=== PATIENT | male | born 1955 | race Caucasian/White ===

== ENCOUNTER → 2018-09-14 | Outpatient (CLI) | payer MEDICARE, BC ==
[2016-04-08 10:45] VITALS: BP 149/83
[~2018-09-14] MED LIST: 0.9 % SODIUM CHLORIDE 10 ML VIAL ONE; ALBU2.5V14 NEB; ALPR1TAB2 PO; AMIT50TA PO; CARV6.25 PO; FURO-68 PO; GABA600T PO; IBUP200T44 PO; IOHEXOL 300 MG/ML 50 ML VIAL. ONE; LEVO200T5 PO; LIDOCAINE 1% PF 30 ML VIAL. ONE; LOVA40TA2 PO; METF500T16 PO; MULT-246 PO; NITR4.1S2 TL; OMEP20TA63 PO; OXYC1TAB22 PO; SPIR25TA5 PO; WARF-31 PO; methylPREDNISolone ACETATE 80 MG/ML VIAL. ONE
== END | disposition home or self-care (01) ==
LOC: SURG 12:37
PROVIDERS: ATTEND Anesthesiology Pain Medicine
DX: M96.1 Postlaminectomy syndrome, not elsewhere classified (principal); M54.5 Low back pain; I20.9 Angina pectoris, unspecified; I25.2 Old myocardial infarction; J44.9 Chronic obstructive pulmonary disease, unspecified; G47.30 Sleep apnea, unspecified; I10 Essential (primary) hypertension; R01.1 Cardiac murmur, unspecified; M19.90 Unspecified osteoarthritis, unspecified site; E11.9 Type 2 diabetes mellitus without complications; D64.9 Anemia, unspecified; K21.9 Gastro-esophageal reflux disease without esophagitis; E89.0 Postprocedural hypothyroidism; Z90.49 Acquired absence of other specified parts of digestive tract; Z79.899 Other long term (current) drug therapy; Z79.84 Long term (current) use of oral hypoglycemic drugs; Z86.73 Personal history of transient ischemic attack (TIA), and cerebral infarction without residual deficits; Z98.890 Other specified postprocedural states; Z88.8 Allergy status to other drugs, medicaments and biological substances
CPT/HCPCS: 36415; 62323; 85610; J1040; J2001; Q9967

== ENCOUNTER → 2018-09-15 | Outpatient (CLI) | payer MEDICARE, BC ==
[2016-04-08 10:45] VITALS: BP 149/83
[~2018-09-15] MED LIST changes: -0.9 % SODIUM CHLORIDE 10 ML VIAL ONE; -IOHEXOL 300 MG/ML 50 ML VIAL. ONE; -LIDOCAINE 1% PF 30 ML VIAL. ONE; -methylPREDNISolone ACETATE 80 MG/ML VIAL. ONE
[2018-09-15 11:56] LABS: CREATININE 0.8 mg/dL (0.7-1.3)
== END | disposition home or self-care (01) ==
LOC: LAB 10:35
PROVIDERS: ATTEND Anesthesiology Pain Medicine
DX: Z11.8 Encounter for screening for other infectious and parasitic diseases (principal)
CPT/HCPCS: 36415; 82565; 84520

== ENCOUNTER 2019-04-25 12:21 | Emergency (ER) | payer MEDICARE, BC ==
[~2019-04-25] VITALS: Ht 180.3 cm; Wt 131.0 kg
[2019-04-25 12:57] LABS: BASO # 0.1 x10^3/uL (0.0-0.2); BASO % 1 % (0-3); EOS # 0.2 x10^3/uL (0.0-0.7); EOS % 3 % (0-3); HEMATOCRIT 44.8 % (39.0-53.0); HEMOGLOBIN 15.1 g/dL (13.0-17.5); LYMPH # 1.7 x10^3/uL (1.0-4.8); LYMPH % 23 % (24-48); MEAN CORPUSCULAR HEMOGLOBIN 32 pg (25-35); MEAN CORPUSCULAR HGB CONC 34 g/dL (31-37); MEAN CORPUSCULAR VOLUME 95 fL (79-100); MONO # 0.5 x10^3/uL (0.0-1.1); MONO % 7 % (0-9); NEUT # 4.7 x10^3uL (1.8-7.7); NEUT % 66 % (31-73); PLATELET COUNT 275 x10^3/uL (140-400); RED BLOOD COUNT 4.74 x10^6/uL (4.30-5.70); RED CELL DISTRIBUTION WIDTH 14.3 % (11.5-14.5); WHITE BLOOD COUNT 7.2 x10^3/uL (4.0-11.0)
--- NOTE | 2019-04-25 13:00 | PHYS DOC ---
Past History Past Medical History: CHF, TIA Past Surgical History: Other Alcohol Use: None Drug Use: None Adult General Chief Complaint Chief Complaint: LOWER EXTREMITY SWELLING [facility] HPI 63-year-old male presents with right lower leg swelling. The patient comes from Dr. Wolfe's office with concern for DVT. 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 He is also had a PE. He is on Coumadin daily. About one week ago, the patient hit the front of his right lower leg on a table or chair. It was bruised at first. The patient has been ignoring it because he has had to make feel arrangements for his mother who just . He noticed yesterday that the area was erythematous and felt warm. He continued to look that way today and he decided he should get it checked out. Patient denies fever or chills. He is taking his medications as prescribed. Denies shortness of breath. Other injuries or complaints. Review of Systems Review of Systems Constitutional: Denies fever or chills [] Eyes: Denies change in visual acuity, redness, or eye pain [] HENT: Denies nasal congestion or sore throat [] Respiratory: Denies cough or shortness of breath [] Cardiovascular: No additional information not addressed in HPI [] GI: Denies abdominal pain, nausea, vomiting, bloody stools or diarrhea [] : Denies dysuria or hematuria [] Musculoskeletal: Right lower extremity swelling[] Integument: Erythema of the right, anterior lower leg.[] Neurologic: Denies headache, focal weakness or sensory changes [] Endocrine: Denies polyuria or polydipsia [] All other systems were reviewed and found to be within normal limits, except as documented in this note. Allergies Allergies Allergies Coded Allergies Type Severity Reaction Last Updated Verified droperidol Allergy Unknown 03/14/16 Yes Physical Exam Physical Exam Constitutional: Well developed, morbid obesity, well nourished, no acute distress, non-toxic appearance. [] HENT: Normocephalic, atraumatic, bilateral external ears normal, oropharynx moist, no oral exudates, nose normal. [] Eyes: PERRLA, EOMI, conjunctiva normal, no discharge. [] Neck: Normal range of motion, no tenderness, supple, no stridor. [] Cardiovascular:Heart rate regular rhythm, no murmur [] Lungs & Thorax: Bilateral breath sounds clear to auscultation [] Abdomen: Bowel sounds normal, soft, no tenderness, no masses, no pulsatile masses. [] Skin: Warm, dry, no erythema, no rash. [] Back: No tenderness, no CVA tenderness. [] Extremities: Right lower extremity is greater diameter than left. 7 cm x 7 cm erythematous, warm area on the anterior rodriguez.[] Neurologic: Alert and oriented X 3, normal motor function, normal sensory function, no focal deficits noted. [] Psychologic: Affect normal, judgement normal, mood normal. [] Current Patient Data Vital Signs Vital Signs Date Time Temp Pulse Resp B/P (MAP) Pulse Ox O2 Delivery O2 Flow Rate FiO2 04/25/19 12:38 98.1 71 18 96 Room Air EKG EKG [] Radiology/Procedures Radiology/Procedures [] Impressions: Right lower extremity venous doppler ultrasound History: Right calf redness and pain, previous history of DVT, on blood thinner Comparison: None Findings: Multiple grayscale, color, and duplex spectral analysis sonographic images were acquired of the right lower extremity veins to evaluate for the presence of DVT. There is normal phasicity. Normal compression, color-flow, and augmentation is demonstrated from the right common femoral to the popliteal veins. There is normal color flow of the proximal greater saphenous and profunda femoris veins. There is normal color flow of segments of the calf veins. Impression: 1. There is no evidence of deep venous thrombosis from the right common femoral to the popliteal veins. Electronically signed by: Jacob Fernandez MD (04/25/2019 1:20 PM) [id number] DICTATED AND SIGNED BY: JACOB FERNANDEZ MD DATE: 04/25/19 3761 CC: TAMAR CHOU DO; LEON WOLFE MD ~ Course & Med Decision Making Course & Med Decision Making Pertinent Labs and Imaging studies reviewed. (See chart for details) The patient's labs are unremarkable. His INR is 2.4. The lower extremity ultrasound is negative for DVT. I believe this is likely cellulitis. I will discharge him with 7 days of Keflex 3 times a day. He is stable for discharge at this time. [] Dragon Disclaimer Dragon Disclaimer This electronic medical record was generated, in whole or in part, using a voice recognition dictation system. Departure Departure: Impression: Primary Impression: Cellulitis of right lower leg Disposition: 01 HOME, SELF-CARE Condition: STABLE Referrals: LEON WOLFE MD (PCP) Patient Instructions: Cellulitis, [id number] Scripts Cephalexin (KEFLEX) 500 Mg Capsule 1 CAP PO TID for cellulitis, #21 CAP Prov: TAMAR CHOU DO 04/25/19 TAMAR CHOU DO Apr 25, 2019 12:59
[2019-04-25 13:03] LABS: ALBUMIN 3.7 g/dL (3.4-5.0); CALCIUM 9.2 mg/dL (8.5-10.1); CREATININE 0.8 mg/dL (0.7-1.3); TOTAL BILIRUBIN 0.5 mg/dL (0.2-1.0); TOTAL PROTEIN 7.3 g/dL (6.4-8.2)
--- NOTE | 2019-04-25 13:23 | RAD ---
Right lower extremity venous doppler ultrasound History: Right calf redness and pain, previous history of DVT, on blood thinner Comparison: None Findings: Multiple grayscale, color, and duplex spectral analysis sonographic images were acquired of the right lower extremity veins to evaluate for the presence of DVT. There is normal phasicity. Normal compression, color-flow, and augmentation is demonstrated from the right common femoral to the popliteal veins. There is normal color flow of the proximal greater saphenous and profunda femoris veins. There is normal color flow of segments of the calf veins. Impression: 1. There is no evidence of deep venous thrombosis from the right common femoral to the popliteal veins. Electronically signed by: Cristopher Garner MD (04/25/2019 1:20 PM) [id number]
[2019-04-25 13:47] VITALS: BP 139/77
[2019-04-25] MEDS ORDERED: CEPH-264 PO (14:05)
== END 2019-04-25 14:17 | disposition home or self-care (01) ==
LOC: ER 12:21
DX: L03.115 Cellulitis of right lower limb (principal); I50.9 Heart failure, unspecified; Z86.73 Personal history of transient ischemic attack (TIA), and cerebral infarction without residual deficits; Z88.8 Allergy status to other drugs, medicaments and biological substances
CPT/HCPCS: 36415; 80053; 85025; 85610; 85730; 87040; 93971; 99285

== ENCOUNTER 2021-10-17 09:04 | Emergency (ER) | payer BC, MEDICARE ==
[~2021-10-17] VITALS: Ht 180.3 cm; Wt 135.8 kg
[~2021-10-17 09:04] MED LIST changes: +CEPH-264 PO
[2021-10-17] MEDS ORDERED: ONDANSETRON PF 4 MG/2 ML VIAL. ONE (09:13)
--- NOTE | 2021-10-17 09:20 | RAD ---
CT STROKE HEAD W/O History: Neurological deficits Comparison: None. Technique: Noncontrast CT imaging was performed of the head. Findings: There is a right cerebellar intraparenchymal hemorrhage measuring 4.4 x 3.8 x 2.4 cm with right to le ft cerebellar shift and bilateral cerebellar subarachnoid hemorrhage. No supratentorial hemorrhage or infarction is identified. No hydrocephalus. Imaged orbits are unremarkable. Imaged paranasal sinuses and mastoid air cells are clear. The scalp a nd calvarium are unremarkable. Impression: 1. Large right cerebellar intraparenchymal hemorrhage and bilateral cerebellar subarachnoid hemorrha ge. ----- Exposure: One or more of the following individualized dose reduction techniques were utilized for thi s examination: 1. Automated exposure control 2. Adjustment of the mA and/or kV according to patient size 3. Use of iterative reconstruction technique. Findings discussed with TAMAR CHOU DO at 10/17/2021 9:14 AM. FOR INTERNAL CODING PURPOSES RESULT CODE: (C) Electronically signed by: Raghav Card MD (10/17/2021 9:17 AM) [facility]
[2021-10-17] MEDS ORDERED: PANT40TA3 PO (09:25)
[2021-10-17] MEDS ORDERED: MECL-75 PO (09:25)
[2021-10-17] MEDS ORDERED: SEMA1PEN3 SQ (09:25)
[2021-10-17] MEDS ORDERED: ALPR1TAB2 PO (09:25)
[2021-10-17] MEDS ORDERED: CHOL10004 PO (09:25)
[2021-10-17] MEDS ORDERED: POTA-121 PO (09:25)
[2021-10-17] MEDS ORDERED: MONT10TA80 PO (09:25)
[2021-10-17] MEDS ORDERED: CYCL10TA19 PO (09:25)
[2021-10-17] MEDS ORDERED: GLIP10TA13 PO (09:25)
[2021-10-17] MEDS ORDERED: OXYB5TAB10 PO (09:25)
[2021-10-17] MEDS ORDERED: AMIT75TA PO (09:25)
[2021-10-17] MEDS ORDERED: ONDANSETRON PF 4 MG/2 ML VIAL. IVP ONE (09:30)
[2021-10-17] MEDS ORDERED: PHYTONADIONE (VIT K1) IV 10 MG in IV NORMAL SALINE 50ML 50 ML IV ONE (09:30)
[2021-10-17] MEDS ORDERED: PHYTONADIONE (VIT K1) IV 5 MG in IV NORMAL SALINE 50ML 50 ML IV ONE (09:30)
--- NOTE | 2021-10-17 09:30 | PHYS DOC ---
Past History Past Medical History: CHF, TIA Past Surgical History: Other Alcohol Use: None Drug Use: None General Adult EDM: Chief Complaint: NEURO SYMPTOMS/DEFICITS HPI: HPI: 66-year-old male presents as a code stroke. Most of the patient reports come from EMS. EMS was called because the patient was feeling generally unwell. Wh ile they were at the residence taking vital signs, the patient started to have a left-sided facial droop and leaning to the left. He also appeared to have some left-sided weakness. Patient was immediately brought to the emergency room as a code stroke. The patient is on warfarin for A. fib as well as several other medications for diabetes and other health issues. Patient has a history of a previous stroke but there were no reported deficits from that. Type of stroke is unknown at this time. The patient further tells me that he was dressed ready to go to a today when he started to have a significant headache. That is what led to calling EMS initially. Review of Systems: Review of Systems: Constitutional: Denies fever or chills Eyes: Denies change in visual acuity HENT: Denies nasal congestion or sore throat Respiratory: Denies cough or shortness of breath Cardiovascular: Denies chest pain or edema GI: Denies abdominal pain, nausea, vomiting, bloody stools or diarrhea : Denies dysuria Musculoskeletal: Denies back pain or joint pain Integument: Denies rash Neurologic: Headache. Facial droop, weakness Endocrine: Denies polyuria or polydipsia Lymphatic: Denies swollen glands Psychiatric: Denies depression or anxiety Current Medications: Current Meds: Current Medications Medications (Trade) Dose Ordered Sig/Jalil Start Time Stop Time Status Last Admin Dose Admin Ondansetron HCl (Zofran) 4 mg 1X ONCE 10/17/21 09:30 10/17/21 09:31 10/17/21 09:18 4 MG Phytonadione 5 mg/ Sodium Chloride 50.5 ml @ 101 mls/hr 1X ONCE 10/17/21 09:30 10/17/21 09:59 UNV Allergies: Allergies: Allergies Coded Allergies Type Severity Reaction Last Updated Verified droperidol Allergy Unknown 03/14/16 Yes Physical Exam: PE: Constitutional: Well developed, well nourished, morbidly obese, no acute distress. [] HENT: Normocephalic, atraumatic, bilateral external ears normal, oropharynx moist, no oral exudates, nose normal. [] Eyes: PERRLA, EOMI, conjunctiva normal, no discharge. [] Neck: Normal range of motion, no tenderness, supple, no stridor. [] Cardiovascular: Heart rate 80, regular rhythm, no murmur [] Lungs & Thorax: Bilateral breath sounds clear to auscultation [] Abdomen: Bowel sounds normal, soft, no tenderness, no masses, no pulsatile masses. [] Skin: Warm, dry, no erythema, no rash. [] Back: No tenderness, no CVA tenderness. [] Extremities: No cyanosis, no clubbing, no edema. [] Neurologic: Alert and oriented X 3. See NIHSS.[] Psychologic: Affect normal, judgement normal, mood normal. [] EKG: EKG: Sinus rhythm, rate 80, leftward axis, no ST elevation or depression. [] Radiology/Procedures: Radiology/Procedures: [] Heart Score: C/O Chest Pain: N/A Risk Factors: Risk Factors: DM, Current or recent (<one month) smoker, HTN, HLP, family history of CAD, obesity. Risk Scores: Score 0 - 3: 2.5% MACE over next 6 weeks - Discharge Home Score 4 - 6: 20.3% MACE over next 6 weeks - Admit for Clinical Observation Score 7 - 10: 72.7% MACE over next 6 weeks - Early Invasive Strategies Course & Med Decision Making: Course & Med Decision Making Pertinent Labs and Imaging studies reviewed. (See chart for details) The patient has an intraparenchymal hemorrhage of the sella bladder area 4 cm x 4 cm x 2.4 cm. See official read for details. Given the patient's warfarin use, we will reverse with vitamin K and FFP. I do not have PCC available at this facility. We will start with initial 2 units of FFP and 10 mg of vitamin K. I spoke with the neurosurgeon at [facility], Dr. Castro and he has recommended transferring the patient and he will operate today. The patient's INR is 3.9. The second unit of FFP is now running. I spoke with the hospitalist, Dr. Lara and he has accepted the patient for transfer. He agrees emergent transfer without a room is indicated. Patient will transfer emergently by EMS. [] Dragon Disclaimer: Dragon Disclaimer: This electronic medical record was generated, in whole or in part, using a voice recognition dictation system. NIH Stroke Scale: NIH Stroke Scale Response (Comments) Value Level of Consciousness: 0 Alert/Responsive 0 LOC Questions: 0 Answers both correctly 0 LOC Commands: 0 Performs both tasks 0 Best Gaze: 0 Normal 0 Visual: 0 No visual loss 0 Facial Palsy: 1 Minor paralysis 1 Motor - Left Arm 1 Drifts, but can hold 1 Motor - Right Arm 1 Drifts but can hold 1 Motor - Left Leg 2 Some effort 2 Motor: Right Leg 3 Limb falls 3 Limb Ataxia: 2 Two limbs 2 Sensory: 0 No loss 0 Best Language: 0 Normal 0 Dysathria: 1 Mild to moderate 1 Extinction and Inattention: 0 Normal 0 Total 11 Departure Departure: Impression: Primary Impression: Hemorrhagic stroke Disposition: 02 SHORT TERM HOSPITAL Condition: GUARDED Referrals: LEON WOLFE MD (PCP) TAMAR CHOU DO Oct 17, 2021 09:30
[2021-10-17 09:36] LABS: BASO # 0.1 x10^3/uL (0.0-0.2); BASO % 1 % (0-3); EOS # 0.2 x10^3/uL (0.0-0.7); EOS % 2 % (0-3); HEMATOCRIT 43.4 % (39.0-53.0); HEMOGLOBIN 14.5 g/dL (13.0-17.5); LYMPH # 1.3 x10^3/uL (1.0-4.8); LYMPH % 14 % (24-48); MEAN CORPUSCULAR HEMOGLOBIN 31 pg (25-35); MEAN CORPUSCULAR HGB CONC 34 g/dL (31-37); MEAN CORPUSCULAR VOLUME 91 fL (79-100); MONO # 0.7 x10^3/uL (0.0-1.1); MONO % 8 % (0-9); NEUT # 7.1 x10^3uL (1.8-7.7); NEUT % 75 % (31-73); PLATELET COUNT 325 x10^3/uL (140-400); RED BLOOD COUNT 4.74 x10^6/uL (4.30-5.70); RED CELL DISTRIBUTION WIDTH 14.6 % (11.5-14.5); WHITE BLOOD COUNT 9.5 x10^3/uL (4.0-11.0)
[2021-10-17 09:39] LABS: CALCIUM 8.6 mg/dL (8.5-10.1); CREATININE 0.9 mg/dL (0.7-1.3); GFR 83.9; POTASSIUM 3.5 mmol/L (3.5-5.1)
[2021-10-17] MEDS ORDERED: PROCHLORPERAZINE 10 MG/2 ML VIAL. IV ONE (09:45)
[2021-10-17 09:48] LABS: ALBUMIN 3.6 g/dL (3.4-5.0); ALBUMIN/GLOBULIN RATIO 0.9 (1.0-1.7); TOTAL BILIRUBIN 0.5 mg/dL (0.2-1.0); TOTAL PROTEIN 7.4 g/dL (6.4-8.2)
--- NOTE | 2021-10-17 10:04 | EKG ---
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
[2021-10-17 10:29] LABS: INFLUENZA A PATIENT NEGATIVE (NEGATIVE); INFLUENZA B PATIENT NEGATIVE (NEGATIVE)
[2021-10-17 11:05] VITALS: BP 152/69
== END 2021-10-17 11:20 | disposition short-term general hospital (02) ==
LOC: ER 09:04
DX: I62.9 Nontraumatic intracranial hemorrhage, unspecified (principal); R29.810 Facial weakness; Z20.822 Contact with and (suspected) exposure to COVID-19; Z86.73 Personal history of transient ischemic attack (TIA), and cerebral infarction without residual deficits
CPT/HCPCS: 36415; 70450; 80053; 82947; 84484; 85025; 85610; 85730; 86850; 86900; 86901; 93005; 96365; 96375; 99285; C9803; J0780; J2405; J3430; U0003; 87428